=== PATIENT | male | born 1975 ===

== ENCOUNTER 2024-03-28 21:13 | Day surgery (SDC) | payer BC, OTHER ==
[2024-03-29] MEDS: LORazepam 2 MG/ML SDV IVPUSH ONE ×3 (00:02→04:33)
[2024-03-29] MEDS: Glucagon,Human Recombinant 1 MG Vial IVPUSH ONE ×2 (00:02→04:30)
[2024-03-29] MEDS: Sodium Chloride 0.9% 1,000 ML IV SCH (00:02)
[2024-03-29 00:03] LABS: BASOPHILS PERCENT AUTO 0.5 % (0.0-1.0); EOSINOPHILS PERCENT AUTO 3.8 % (1.0-3.0); LYMPHOCYTES PERCENT AUTO 29.5 % (20.5-50.1); MEAN CORPUSCULAR HEMOGLOBIN 30.5 pg (27.0-34.0); MEAN CORPUSCULAR VOLUME 89.8 fL (80-100); MONOCYTES PERCENT AUTO 7.3 % (2-8); NEUTROPHILS PERCENT AUTO 58.9 % (42.2-75.2); PLATELET COUNT,PLT 253 10^3/uL (150-450); RED BLOOD CELL COUNT 5.57 10^6/uL (4.6-6.2); WHITE BLOOD CELL COUNT,WBC 8.2 10^3/uL (5.0-10.0)
[2024-03-29] MEDS: Sodium Chloride 0.9% 10 ML Syringe FLUSH PRN (00:17)
[2024-03-29 00:21] LABS: ALBUMIN 4.1 g/dL (3.4-5.0); ANION GAP 11.3 mEq/L (7-13); BILIRUBIN TOTAL 0.6 mg/dL (0.2-1.0); CALCIUM 9.2 mg/dL (8.5-10.1); CREATININE 1.11 mg/dL (0.70-1.30); EST CRCL DRUG DOSING (CG) 95.65 mL/min; POTASSIUM,K 4.3 mmol/L (3.5-5.1); PROTEIN TOTAL,TP 8.1 g/dL (6.4-8.2)
[2024-03-29] MEDS ORDERED: Midazolam 1 MG/ML 2 ML SDV ONE (07:55)
[2024-03-29] MEDS ORDERED: fentaNYL 100 MCG/2 ML SDV ONE (07:56)
[2024-03-29] MEDS: Dextrose 5%-0.45% NaCl 1,000 ML IV SCH (07:59)
[2024-03-29] MEDS: fentaNYL 100 MCG/2 ML SDV IV ONE ×2 (08:19→08:20)
[2024-03-29] MEDS: Midazolam 1 MG/ML 2 ML SDV IV ONE ×2 (08:20→08:21)
== END 2024-03-29 10:02 | disposition home or self-care (01) ==
LOC: DL.ENDO 21:13
PROVIDERS: ATTEND Internal Medicine Gastroenterology
DX: K29.50 Unspecified chronic gastritis without bleeding (principal); K21.00 Gastro-esophageal reflux disease with esophagitis, without bleeding; R12 Heartburn; E66.9 Obesity, unspecified; J45.909 Unspecified asthma, uncomplicated; F32.A Depression, unspecified; Z79.899 Other long term (current) drug therapy
CPT/HCPCS: 36415; 43239; 71045; 80053; 85025; 87077; 99284; J1610; J2060; J2250; J3010; J7030; J7042; J3490